=== PATIENT | female | born 1995 | race African-American/Black ===

== ENCOUNTER 2020-07-26 14:02 | Emergency (ER) | payer BC, SELFPAY ==
[2020-07-26 14:15] VITALS: BP 133/61; PULSE 95; RESP 18; TEMP 37.4; O2SAT 100; BMI 23.1
--- NOTE | 2020-07-26 17:09 | ED.SKABFB ---
HPI - Skin/Abscess/Foreign Bdy General Chief complaint: Skin/Abscess/Foreign Body Stated complaint: CYST Time Seen by Provider: 07/26/20 16:59 Source: patient Mode of arrival: ambulatory Limitations: no limitations History of Present Illness HPI narrative: 25-year-old female with no significant past medical history presents with a left-sided labial cyst. Was seen at urgent care yesterday and given antibiotics however the pain and swelling increased and she is having a difficult time walking. She has had a left labial cyst in the past and it was drained successfully a few years ago last Tdap was approximately 3 years ago. She does not report any fevers, chills, nausea, vomiting vaginal discharge, abnormal vaginal bleeding, chest pain or pressure, palpitations, shortness of breath, abdominal pain, abdominal distention, dysuria, hematuria, and edema. MD complaint: abscess/boil Onset (ago): day(s) (3) Tetanus up to date: yes Location: genitals Severity: moderate Severity scale (1-10): 7 Quality: burning and aching Pain Consistency: constant Relieving factors: none Exacerbating factors: movement Associated symptoms: denies other symptoms Treatments prior to arrival: attempted to drain pus at home and antibiotic Related Data Previous Rx's Medication Instructions Recorded doxycycline monohydrate 100 mg PO BID 10 Days #20 cap 07/26/20 oxycodone 5 mg PO Q8H PRN #3 tab 07/26/20 Allergies Allergy/AdvReac Type Severity Reaction Status Date / Time No Known Allergies Allergy Verified 07/26/20 14:18 Review of Systems Review of Systems: Constitutional: No Fever, No Chills ENT/Mouth: No sore throat, No Rhinorrhea Eyes: No Eye Pain, No Redness Cardiovascular: No Chest Pain, No SOB Respiratory: No Cough, No Sputum, No Wheezing Gastrointestinal: positive Nausea, No Vomiting, No Diarrhea, positive abdominal pain, Genitourinary: positive labial swelling and pain, No Dysuria, No Urinary Frequency, no supra pubic or pelvic pain Musculoskeletal: No Myalgias Skin: No rash, positive abscess to the left labia majora Neuro: No Weakness, No Headache Psych: No Anxiety/Panic, No Depression Heme/Lymph: No bruising, No Lymphadenopathy Endocrine: No Polyuria, No Polydipsia Yes all other systems are reviewed and are negative COUNT INCLUDES THE [facility] Past Medical History Attestation statement: The following information was validated with the patient. Source: old records reviewed Social History Social History Advance Directives: No Advance Directives Information Provided: No Physical Exam Vital Signs: Vital Signs: Last Vital Signs Temp 99.3 F 07/26/20 14:15 Pulse 95 07/26/20 14:15 Resp 18 07/26/20 14:15 BP 133/61 07/26/20 14:15 Pulse Ox 100 07/26/20 14:15 Body Mass Index 23.1 Appearance: Alert. Oriented X3. No acute distress. Eyes: Pupils equal, round and reactive to light. ENT: Pharynx normal. Neck: Normal inspection. Neck supple. CVS: Normal heart rate and rhythm. Pulses normal. Respiratory: No respiratory distress. Breath sounds normal. Abdomen: Soft and nontender. Ten of Skin: Skin warm and dry. Normal skin color. Normal skin turgor. Extremities: No lower extremity edema. Neuro: No motor deficit. No sensory deficit. Course Course Course Narrative: 25-year-old female presents with left Bartholin's cyst. Was treated with Keflex 3 days ago however swelling and pain has increased. Plan to I&D, discussion with patient regarding plan, patient agrees. ED facilities operations technician in to assist and as auctioneer tobacco, prepped and draped in sterile fashion, 10 mL of purulent drainage from the left labia. Patient tolerated procedure well. Please refer to I&D note for full details. Will add doxy to antibiotic regimen as well as pain management. Patient verbalized understanding of and agrees to plan of care discharge home. Procedures Abscess I/D Site: bartholin's gland Side (if applicable): left Local Anesthetic: lidocaine 2% Amount of anesthesia used (mL): 4 Technique: needle aspiration and incised with blade Amount of fluid expressed (mL): 10 Sent for culture/gram staining?: Yes Irrigation: No Packing used?: none MDM - Skin/Abscess/Foreign Bdy Differential Diagnosis Differential diagnosis: Likely abscess of skin or subcutaneous tissue Medical Records Attestation: I reviewed the patient's medical records. Lab Data Attestation: I reviewed the patient's lab results. Discharge Plan Discharge Clinical Impression: Abscess of Bartholin's gland Patient Disposition: Home, Self-Care Instructions: Bartholin Cyst (ED), Incision and Drainage (ED) Additional Instructions: You were evaluated for Bartholin cyst. We drained this cyst, your wound cultures pending. Please continue to take the Keflex that was prescribed to you earlier. We have added doxycycline 100 mg twice a day. I prescribed 3 tablets of oxycodone for pain management. This medication is a narcotic and has high risk for addiction abuse. This medication may cause drowsiness, increased reaction time, cause constipation, and increased risk for falls. Please use caution when taking this medication, do not drive or operate machinery. Not make important decisions while taking oxycodone. If you develops fevers, chills, or worsening pain and swelling please return to the emergency department immediately. Thank you for choosing this emergency department for evaluation. Please follow-up with primary care physician as needed. Return to the emergency department for any new, concerning, or worsening symptoms. Prescriptions: New doxycycline monohydrate 100 mg capsule 100 mg PO BID 10 Days Qty: 20 RF: 0 oxycodone 5 mg tablet 5 mg PO Q8H PRN (Reason: pain) Qty: 3 RF: 0 Interventions: ED Discharge Assessment Last Done: 07/26/20 18:33 Discharge Date/Time: 07/26/20 18:34
[2020-07-26] MEDS: Lidocaine HCl 2 % MPF 5 ML VIAL SUBCUT (17:22)
== END 2020-07-26 18:34 | disposition home or self-care (01) ==
PROVIDERS: Emergency Provider Internal Medicine
DX: N75.1 Abscess of Bartholin's gland (principal)
CPT/HCPCS: 56420; 87071; 87147; 87205; 99283; 99284